=== PATIENT | female | born 1990 | race Caucasian/White ===

== ENCOUNTER 2020-10-17 07:22 | Inpatient (IN) | payer OTHER ==
[~2020-10-17] VITALS: Ht 167.6 cm; Wt 107.7 kg
[~2020-10-17 07:22] MED LIST: VITAFOL-OB+DHA1 EACH
--- NOTE | 2020-10-17 12:41 | NUR ---
30 YEAR OLD FEMALE PATIENT ADMITT[facility] WIL[facility] WITH DX OF HYPO NA, RIGHT RENAL NEPHROSIS. PATIENT STATES SHE STOPPED DRINKING ALCOHOL LAST MONDAY. SHE HAS HAS ABD PAIN N/V/D SINCE 10/15/20. UPON ADMIT PATIENT IS COOPERATIVE, ALERT, ORIENTED. HAS 2 PATENT IV SITES. ADMISSION PROCESS STARTED.
--- NOTE | 2020-10-17 14:00 | NUR ---
ADMISSION PROCESS COMPLETED. DENIES PAIN. TOOK FEW SIPS OF WATER, DENIES NAUSEA.
--- NOTE | 2020-10-17 14:30 | NUR ---
when sleeping/resting, will talk softly out loud. PATIENT IS NOT AWARE SHE DOING THIS. IV KCL, MG, ABX INFUSING.
--- NOTE | 2020-10-17 14:54 | NUR ---
DR. WILKES AWARE OF MOST CURRENT LABS. UP TO COMMODE TO VOID 800 ML ON THANIA URINE. DENIES PAIN. WITH ACTIVITY, C/O FEELING ACHY ALL OVER.
--- NOTE | 2020-10-17 15:32 | NUR ---
MED REC COMPLETE
--- NOTE | 2020-10-17 16:30 | NUR ---
D5W INFUSED. UP TO COMMODE WITH ASSIST TO VOID 700 ML OF YELLOW URINE. DENIES PAINFUL URINATION.
--- NOTE | 2020-10-17 17:12 | NUR ---
STATES SHE FEELS HOT AGAIN. DAMP TO TOUCH. TEMP ORAL 98.6, TEMP AX-99.4
--- NOTE | 2020-10-17 19:30 | NUR ---
RECEIVED REPORT FROM TURNER HAMPTON. pt RESTING IN BED WITH FATHER AT BEDSIDE. IVS SALINE LOCKED AT THIS TIME. NO REQUESTS AT THIS TIME. WHITEBOARD UPDATED. CALL LIGHT WITHIN REACH.
--- NOTE | 2020-10-17 19:53 | NUR ---
NOTIFIED MD OF CRITICAL VALUE. MD TO PUT IN ORDERS FOR LABS IN 2 HOURS AND PARAMETERS.
--- NOTE | 2020-10-17 20:02 | NUR ---
FLUID STOPPED PER MD ORDER.
--- NOTE | 2020-10-17 20:02 | NUR ---
ASSESSMENT DONE. pt ABLE TO AMBULATE WITH ASSISTANCE FROM DAD. REPORTS THAT GENERAL ACHES AND PAINS ARE BETTER AFTER THE TYLENOL. DISCUSSED PLAN OF CARE. pt ASKED APPROPRIATE QUESTIONS. LUNGS CLEAR, DIM IN THE BASES. RESPIRATION RATE IN THE HIGH 20'S TO 30'S. DENIES SOB. HR TACHY 110-120. pt RESTING IN BED. CALL LIGHT WITHIN REACH. FATHER AT BEDSIDE.
--- NOTE | 2020-10-17 20:43 | NUR ---
pt UP TO TOILET AND BACK INDEPENDENT. pt REPORTED PAIN WHEN BENDING OVER BUT NO INCREASE FROM WHEN SHE CAME IN. RESTING IN BED. CALL LIGHT WITHIN REACH.
--- NOTE | 2020-10-17 22:09 | NUR ---
IN TO DRAW LABS. pt RESTING IN BED. RESPIRATIONS IN THE 30'S, pt WOKE TO VOICE. LABS DRAWN. IV ANTIBIOTIC INFUSING PER ORDERS. NO REQUESTS AT THIS TIME. CALL LIGHT WITHIN REACH.
--- NOTE | 2020-10-17 22:40 | NUR ---
SODIUM BACK. NO CHANGES PER ORDERS. pt RESTING IN BED. CALL LIGHT WITHIN REACH.
--- NOTE | 2020-10-17 23:21 | NUR ---
CALL LIGHT ON. pt UP TO VOID AND BACK TO BED. NO CHANGES IN ASSESSMENT. CALL LIGHT WITHIN REACH. FATHER AT BEDSIDE.
--- NOTE | 2020-10-18 01:27 | NUR ---
O2 SAT 84% TO 90% ON ROOM AIR, MAINLY SUSTAINING BELOW 90%. IN TO ASSESS. pt RESPIRATION RATE CONTINUES TO BE IN THE 30-40'S. PLACED ON 2L O2 VIA NC. SATS NOW MID 90'S. RESPIRATIONS 30. HR 110'S. pt RESTING IN BED, WOKE TO VOICE. NO REQUESTS AT THIS TIME. CALL LIGHT WITHIN REACH.
--- NOTE | 2020-10-18 02:14 | NUR ---
IN TO DRAW LABS. pt WOKE TO VOICE. DENIES SOB, REPORTS "I HAVE ALLERGIES SO AT NIGHT I TEND TO BREATH FASTER AND THROUGH MY MOUTH." UP TO VOID AND BACK TO BED, SBA. CALL LIGHT WITHIN REACH. SAT 95% ON 2L.
--- NOTE | 2020-10-18 02:35 | NUR ---
UPDATED DR WILKES WITH LAB VALUE. ORDERS TO RUN A BOLUS OF 1L D5 WATER OVER 1 HOUR, TO BE FOLLOWED BY D5 WATER AT 125MLS/HR. LABS TO BE DRAWN AT 0500. ORDERS ENTERED.
--- NOTE | 2020-10-18 02:40 | NUR ---
BOLUS INFUSING PER ORDERS. DISCUSSED TREATMENT PLAN WITH pt. ALL QUESTIONS ANSWERED. CALL LIGHT WITHIN REACH.
--- NOTE | 2020-10-18 03:49 | NUR ---
BOLUS INFUSION COMPLETED. IV MAINTANENCE FLUIDS INFUSING. pt RESTING IN BED. RESPIRATIONS 30, REGULAR. EYES CLOSED. CALL LIGHT WITHIN REACH.
--- NOTE | 2020-10-18 05:25 | NUR ---
IN TO DRAW LABS AND DO ASSESSMENT. pt RESTING IN BED. UP TO VOID SBA AND BACK TO BED. REPORTED CONTINUED PAIN IN LEFT FOOT WHILE AMBULATING AND RIGHT SHOULDER WHILE ROLLING. pt REPORTED FEELING "BLOATED" NO OTHER CHANGES IN ASSESSMENT. LABS DRAWN. pt RESTING IN BED, CALL LIGHT WITHIN REACH.
--- NOTE | 2020-10-18 05:48 | NUR ---
O2 SAT DROPS TO 79 UNSUSTAINED, RELATED TO SHALLOW RESPIRATIONS. 2L O2 APPLIED. CALL LIGHT WITHIN REACH.
--- NOTE | 2020-10-18 06:25 | NUR ---
IV FLUIDS INFUSING PER ORDERS. pt SATS 100%, REMOVED O2, SATS HIGH 90'S ON ROOM AIR. pt IS AWAKE AND TALKING ON THE PHONE. CALL LIGHT WITHIN REACH.
--- NOTE | 2020-10-18 08:19 | NUR ---
PATIENT RESTING IN BED UPON INITIAL ASSESSMENT AND APPEARS IN NO ACUTE DISTRSS. HR REMAINS IN 110-120s, UP TO 130s WITH AMBULATION. RR 26-31 AT THIS TME. PT DOES SAY SHE HAS SOME SHORTNESS OF BREATH WITH ACTIVITY. UP TO BATHROOM TO VOID 600 ML. DESMOPRESSIN STARTED ONCE NEW IV WAS ESTABLISHED IN LEFT FOREARM - OTHER IV WAS INADVERTENTLY PULLED. BP THIS AM 133/71. PT'S BREAKFAST ORDERED WELL CAREGIVER TRAY. PT'S FATHER REMAINS IN ROOM. PT IS AFEBRILE AT THIS TIME. BLOOD TO BE DRAWN AN HOUR AFTER DESMOPRESSIN FINISHED. IV VANCO TO BE STARTED AFTER PATIENT HAD POSITIVE BLOOD CULTURES THIS AM. CONTINUE TO MONITOR.
--- NOTE | 2020-10-18 09:27 | NUR ---
DR. WILKES IN ROOM TO SEE PATIENT. SODIUM DRAWN FROM IV LINE AT THIS TIME. IV VANCO AND CEFEPIME INFUSING.
--- NOTE | 2020-10-18 14:06 | NUR ---
PATIENT CALLED TO USE THE BATHROOM. PATIENT AMBULATED WITHOUT CONCERN. PATIENT BACK IN BED. CALL LIGHT IN REACH. NO OTHER REQUEST AT THIS TIME
--- NOTE | 2020-10-18 15:43 | NUR ---
PATIENT HAS BEEN RESTING IN BED W/O COMPLAINTS. PT AWOKEN TO START D5 SOLUTION OF 600 ML AT THIS TIME DUE TO SODIUM COMING UP TO 127. PT UP TO BATHROOM TO VOID 650 ML. PT NOW BACK TO BED. PT HAS BEEN TACHYCARDIC THE ENTIRE DAY, AND RR UP TO 28-33.
--- NOTE | 2020-10-18 18:32 | NUR ---
BLOOD DRAWN FROM LEFT FOREARM IV SITE FOR 1830 LAB DRAW. PT STILL RECEIVING IV VANCO, MAXIPINE, AND ROCEPHIN FOR ABX. PT HAS REMAINED TACHYCARDIC ALL DAY, CURRENTLY 109. PT ALSO HAS REMAINED TACHYPNEIC, AFEBRILE ALL DAY. PT STATES SHE IS STARTING TO FEEL BORED. DENIES FURTHER NEEDS.
--- NOTE | 2020-10-18 19:05 | NUR ---
PATIENT UP TO BATHROOM AGAIN TO VOID AND BREA WELL. PT'S LEFT FOOT STILL HURTING HER, BUT OVERALL SHE THINKS ITS GETTING BETTER. SODIUM AT 1830 WAS 126 - DR. WILKES CALLED AND ORDER REC'D TO GIVE ANOTHER D5W LITER AND THEN RE-DRAW SODIUM LEVEL 45 MINUTES AFTER INFUSION COMPLETE. CONTINUE TO MONITOR.
--- NOTE | 2020-10-18 19:32 | NUR ---
RECEIVED REPORT FROM TURNER MATTSON. pt SITTING IN BED TALKING ON THE PHONE. D5 WATER BOLUS INFUSING. WHITEBOARD UPDATED. CALL LIGHT WITHIN REACH.
--- NOTE | 2020-10-18 19:43 | NUR ---
CALL LIGHT ON. PUMP ALARMING. ERROR RESOLVED. DISCUSSED PLAN OF CARE WITH pt. pt REPORTS A GOOD DAY WITH AN INTERMITTENT HEADACHE THAT FEELS "LIKE THAT HEADACHE YOU GET AFTER A CONCUSSION" DR WILKES UPDATED. pt RESTING IN BED WITH FATHER AT BEDSIDE. CALL LIGHT WITHIN REACH.
--- NOTE | 2020-10-18 20:15 | NUR ---
ASSESSMENT DONE. LUNGS CLEAR, BOWEL TONES ACTIVE. PAIN TOLERABLE AT THIS TIME. DISCUSSED PAIN MANAGEMENT OPTIONS. pt WILL CALL IF SHE NEEDS SOMETHING FOR PAIN. CALL LIGHT WITHIN REACH.
--- NOTE | 2020-10-18 21:06 | NUR ---
SPOKE WITH DR WILKES ABOUT LAB RESULTS AND NEW ORDERS. WILL HAVE PHARMACY CHANGE VANCO FROM 500MLS OF NORMAL SALINE TO 500MLS OF D5 WATER. PHARMACY UPDATED AND WILL CHANGE. BOLUS STARTED PER ORDERS.
--- NOTE | 2020-10-18 21:46 | NUR ---
CALL LIGHT ON. pt UP TO VOID AND BACK TO BED. BOLUS INFUSING PER ORDERS. CALL LIGHT WITHIN REACH. FATHER AT BEDSIDE.
--- NOTE | 2020-10-18 22:59 | NUR ---
CALL LIGHT ON. pt UP TO VOID AND HAVE BM, INDEPENDENT. pt REPORTED BM WAS DARK BROWN AND FORMED. pt RESTING IN BED. CALL LIGHT WITHIN REACH.
--- NOTE | 2020-10-19 00:15 | NUR ---
IN TO DRAW LABS AND GIVE MEDICATIONS. pt RESTING IN BED. REPORTED HER HEADACHE HAS GONE AWAY, NO OTHER CHANGES IN ASSESSMENT. IV MEDICATIONS INFUSING PER ORDERS. CALL LIGHT WITHIN REACH.
--- NOTE | 2020-10-19 00:51 | NUR ---
IV INFUSION COMPLETED, SL RIGHT FOREARM IV. pt SNORING RESPIRATIONS IN THE 30'S. O2 SAT 96% ON ROOM AIR. CALL LIGHT WITHIN REACH.
--- NOTE | 2020-10-19 03:12 | NUR ---
IN TO DRAW LABS. pt RESTING IN BED AWAKE. REPORTED FEELING COLD. PROVIDED WARM BLANKETS. LABS DRAWN. NO REQUESTS AT THIS TIME. CALL LIGHT WITHIN REACH.
--- NOTE | 2020-10-19 06:35 | NUR ---
IN TO DO ASSESSMENT AND LAB DRAW. pt WOKE TO VOICE. REPORTED HAVING SLEPT WELL. LAB DRAW DONE. pt UP TO VOID. ASSESSMENT DONE. NO CHANGES. MEDICATION INFUSING PER ORDERS. CALL LIGHT WITHIN REACH. pt RESTING IN BED.
--- NOTE | 2020-10-19 07:00 | NUR ---
INFUSION COMPLETED. SL. TALKED ABOUT PLAN FOR THE DAY. CALL LIGHT WITHIN REACH. pt RESTING IN BED.
--- NOTE | 2020-10-19 07:13 | NUR ---
LAB RESULTS IN. PER ORDERS STARTED A BOLUS OF D5 WATER 1 LITER OVER AN HOUR. pt UPDATED.
--- NOTE | 2020-10-19 07:30 | NUR ---
PATIENT REPORT RECIEVED FROM TURNER ELDRIDGE. PATIENT IS RESTING IN BED. RESPIRATIONS ARE EQUAL AND UNLABORED. CALL LIGHT WITHIN REACH NO FUTHER NEEDS.
--- NOTE | 2020-10-19 08:30 | NUR ---
PATIENT ASSESSMENT COMPLETE. MEDICATIONS GIVEN. ALERT AND ORIENTED X4. PATIENT IS COMPLAINING OF RIGHT SHOULDER PAIN ACHE. PATIENT OFFERED PRN TYLENOL AND DENIED IT. REPOSITIONED ARM ON PILLOW. PATIENT LUNG SOUNDS ARE CLEAR AND OXYGEN SATURATION IS 98%. DENIES SHORTNESS OF BREATH. HEART SOUNDS ARE WNL AND PATIENT IS SINUS TACH AT 110 BPM. PATIENT URINE OUTPUT IS YELLOW AND CLEAR. BM EARLY THIS MORNING. PATIENT DENIES DIARREHA OR NASEUA. BOWEL SOUNDS ARE ACTIVE. D5LR BOLUS RUNNING AT 999 MLS/HR. 500 MLS TO BE INFUSED. PATIENT UPDATED ON PLAN OF CARE. NO QUESTIONS AT THIS TIME. CALL LIGHT WITHIN REACH NO FUTHER NEEDS.
--- NOTE | 2020-10-19 11:23 | NUR ---
PATIENT AM CARE DONE. PATIENT AMBULATED TO THE BATHROOM. PATIENT WAS SLIGHTLY CONFUSED WHEN IN THE BATHROOM. UNABLE TO PULL UNDERWEAR DOWN AND NEEDED INSTRUCTED. ALSO STATED "WHEN CAN I GO TO THE BATHROOM" AFTER BEING LEFT IN PRIVACY TO GO. WILL CONTINUE TO MONITOR CONFUSION. PATIENT BACK TO BED. BREATHING IS EQUAL AND UNLABORED. CALL LIGHT WITHIN REACH NO FUTHER NEEDS.
--- NOTE | 2020-10-19 11:30 | NUR ---
PATIENT SBA UP TO BATHROOM. PATIENT APPEARED CONFUSED TO WHAT SHE WAS DOING, SAT ON TOILET WITHOUT PULLING UNDERWEAR DOWN. PATIENT ALSO ASKED 'SHOULD I BE GOING PEE NOW?" WHILE SITTING ON THE TOILET. PATIENT IN RECLINER FOR BEDBATH. NEW GOWN, UNDERWEAR AND LINEN PROVIDED. BAKC TO BED HR HAD INCREASED DURING THIS ACTIVITY. CALL LIGHT AND PERSONAL ITEMS IN EASY REACH
--- NOTE | 2020-10-19 12:00 | NUR ---
ASSESSMENT COMPLETE. MEDICATIONS GIVEN ORDERED. PATIENT IS ALERT AND ORIENTED X4. PATIENT IS STILL SLOW TO RESPOND BUT DENIES THAT SHE FEELS CONFUSED. PATIENT LUNG SOUNDS ARE CLEAR AND SHE IS ON ROOM AIR. PATIENT OXYGEN SATURATION IS 98%. PATIENT RR IS 28. HEART SOUNDS ARE WNL AND PATIENT IS IN A SINUS TACH AT 119 BPM. PATIENT DENIES ANY ABDOMINAL PAIN OR NASUEA. URINE OUTPUT IS YELLOW AND CLEAR. PATIENT UPDATED ON PLAN OF CARE. NO QUESTIONS AT THIS TIME. CALL LIGHT WITHIN REACH NO FUTHER NEEDS.
--- NOTE | 2020-10-19 12:30 | NUR ---
PATIENT AMBULATED TO RESTOOM WITH ASSIST BY THIS RN. PATIENT WAS PAINFUL IN THE RIGHT SHOULDER AND LEFT LEG. COMPLAINING OF 9/10 PAIN. HEART RATE WAS HIGH 129 BPM. RR WERE 30. PATIENT BACK TO BED WITH ASSISTANCE. HAD SHORTNESS OF BREATH. HER OXYGEN SATURATION WAS 98% ON ROOM AIR. CALL LIGHT WITHIN REACH NO FUTHER NEEDS.
--- NOTE | 2020-10-19 12:58 | NUR ---
3% ns at 30 ml/hr hung as per orders. CONTINUES TO C/O LEFT LEG PAIN AND RIGHT SHOULDE ACHE.
--- NOTE | 2020-10-19 13:30 | NUR ---
SPOKE WITH PATIENT IN ROOM. PATIENT SITTING UP AT SIDE OF BED FOR LUNCH. PATIENT LIVES WITH PARENTS IN [place]. HER 5 YEAR OLD SON LIVES WITH HER. SHE USES NO DME. SHE DRIVES, FAMILY WILL PROVIDE RIDE HOME. SHE STATES SHE IS HAVING TROUBLE WITH ALCOHOL. SHE IS INTERESTED IN HELP WITH TREATMENT. STATES SHE FOUND A PLACE IN [place] THAT WOULD LET HER STAY AND HER SON STAY WITH HER. SHE IS ON A WAITING LIST FOR THIS. SHE WOULD WELCOME ANY HELP WITH THIS. DISCUSSED [facility], SHE AGREES TO A VISIT OR CALL WITH THEM. DISCUSSED WITH HER ALSO NEEDING PCP. SHE IS NOT SURE WHO SHE WANTS TO USE. GAVE HER A LOCAL CLINIC LIST. SHE WANTS TO FIND ONE IN THE [place], NOT [place]. SHE STATES SHE WILL LOOK AT IT AND SEE WHO SHE WOULD WANT TO TRY. CIRCLED [facility] WHICH IS AN OFFICE FOR HER [facility] COVERAGE ONLY. CALLED [facility] AND SPOKE WITH TAMERA [phone]. TAMERA STATES SHE MIGHT BE ABLE TO COME UP THIS AFTERNOON, IF NOT AROUND 8AM TOMORROW FOR SURE. UPDATED STAFF AND PATIENT REGARDING THIS.
--- NOTE | 2020-10-19 16:01 | NUR ---
PATIENT ASSESSMENT COMPLETE. MEDICATIONS GIVEN ORDERED. DR. ELENA NOTIFIED ABOUT NA LEVEL BEING 125. LAB WILL DRAW AGAIN 10/20/20 AT 0600. PATIENT IS ALERT AND ORIENTED X4. DENIES DIZZNESS. LUNG SOUNDS ARE CLEAR AND PATIENT IS ON ROOM AIR. OXYGEN SATURATION IS AT 98%. HEART SOUNDS ARE WNL AND PATIENT IS IN SINUS TACH AT 112 BPM. PATIENT COMPLAINS OF BEING NAUSEATED EARLIER BUT DENIES IT NOW. URINE OUTPUT IS CLEAR AND YELLOW. 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 DENIES DIARRHEA. PAIN IS A 8/10 WHEN AMBULATING. PATIENT SAYS THE PAIN IS IN RIGHT SHOULDER AND DOWN HER LEFT LEG. THE PAIN IS AN ACHE. PRN TYLENOL WILL BE GIVEN. PATIENT UPDATED ON PLAN OF CARE. CALL LIGHT WITHIN REACH NO FUTHER NEEDS.
--- NOTE | 2020-10-19 19:30 | NUR ---
RECEIVED REPORT FROM TURNER VILCHIS. pt RESTING IN BED TALKING ON PHONE WITH FATHER AT BEDSIDE. CALL LIGHT WITHIN REACH.
--- NOTE | 2020-10-19 20:37 | NUR ---
DR. ELENA NOTIFIED OF POSITIVE BLOOD CULTURE RESULTS. ONE AEROBIC BOTTLE GREW GRAM POSITIVE COCCI IN CLUSTERS. PT IS ALREADY ON VANCO, THEREFORE NO NEW ORDERS NEEDED AT THIS TIME.
--- NOTE | 2020-10-19 20:41 | NUR ---
IN TO DO ASSESSMENT. pt RESTING IN BED. DENIED HEADACHE AT THIS TIME. PAIN IN RIGHT SHOULDER WITH MOVEMENT AND LEFT FOOT WHEN STANDING REMAIN UNCHANGED. DISCUSSED PLAN OF CARE AND MEDICATIONS FOR THE SHIFT. pt ALERT AND ORIENTED, ASKED APPROPRIATE QUESTIONS. FATHER AT BEDSIDE. ASSESSMENT DONE. CALL LIGHT WITHIN REACH.
--- NOTE | 2020-10-19 22:42 | NUR ---
CALL LIGHT ON. pt UP TO VOID AND BACK TO BED, SBA. CALL LIGHT WITHIN REACH.
--- NOTE | 2020-10-20 00:53 | NUR ---
IN TO GIVE MEDICATION. pt WOKE TO VOICE. DENIED NEW OR INCREASED PAIN. NO HEADACHE. NO CHANGES IN ASSESSMENT. RESPIRATIONS MID 20'S TO 30'S. IV MEDICATION INFUSING. CALL LIGHT WITHIN REACH.
--- NOTE | 2020-10-20 01:30 | NUR ---
IV INFUSION COMPLETE. SL. pt RESTING IN BED WITH EYES CLOSED, RESPIRATIONS REGULAR AND UNLABORED. CALL LIGHT WITHIN REACH.
--- NOTE | 2020-10-20 04:45 | NUR ---
CALL LIGHT ON. pt REQUESTED TO GET UP TO VOID. SBA TO VOID AND BACK TO BED. ASSESSMENT DONE. NO CHANGES. pt STATED THAT HER PAIN IS SLIGHTLY IMPROVED. NO HEADACHE DURING SHIFT. RIGHT IV PAINFUL. NEW IV STARTED AND LABS DRAWN. NO REQUESTS AT THIS TIME. pt RESTING IN BED. CALL LIGHT WITHIN REACH.
--- NOTE | 2020-10-20 08:02 | NUR ---
PATIENT ASSESSMENT COMPLETE. MEDICATIONS GIVEN ORDERED. PATIENT IS SITTING UP IN CHAIR FOR BREAKFAST. PATIENT STATES "I AM FEELING BETTER THAN YESTERDAY". PATIENT IS ALERT AND ORIENTED X4. LUNG SOUNDS ARE CLEAR AND OXYGEN SATURATION IS 98% ON ROOM AIR. PATIENT HEART SOUNDS ARE WNL AND SHE IS IN SINUS RHTYM AT 100 BPM. RR ARE 24. PATIENT DENIES ANY NAUSEA OR PAIN. PATIENT URINE IS YELLOW AND CLEAR. DENIES ANY DIARRHEA. BOWEL SOUNDS ARE ACTIVE. PATIENT IS SALINE LOCKED. UPDATED ON PLAN OF CARE. NO QUESTIONS AT THIS TIME. CALL LIGHT WITHIN REACH NO FUTHER NEEDS.
--- NOTE | 2020-10-20 09:44 | NUR ---
PATIENT IN WITH ECHO. MEDICATION GIVEN ORDERED. BREATHING IS EQUAL AND UNLABORED. CALL LIGHT WITHIN REACH NO FUTHER NEEDS.
--- NOTE | 2020-10-20 12:30 | NUR ---
PATIENT ASSESSMENT COMPLETE. MEDICATIONS GIVEN. PATIENT IS ALERT AND ORIENTED X4. LUNG SOUNDS ARE CLEAR AND PATIENT IS ON ROOM. HEART SOUNDS ARE WNL AND IN SINUS RHYTHM. PATIENT DENIES OF ABDOMINAL PAIN AND HAS NOT HAD A BM TODAY. URINE IS YELLOW AND CLEAR. DR. ELENA HAS TRANSFER ORDERS FOR PATIENT TO GO TO MED SURG. PATIENT UPDATED ON PLAN OF CARE CALL LIGHT WITHIN REACH NO FUTHER NEEDS.
--- NOTE | 2020-10-20 15:00 | NUR ---
Update from RN. Pt saw [facility] to [facility] support today. Awaiting echo.
--- NOTE | 2020-10-20 16:15 | NUR ---
PATIENT ASSESSMENT COMPLETE. PATIENT IS ALERT AND ORIENTED X4. LUNG SOUNDS ARE CLEAR THROUGHOUT. HEART SOUNDS ARE WNL AND PATIENT IS IN A SINUS RHYTM. DENIES ANY PAIN OR NASEUA AT THIS TIME. URINE IS CLEAR AND YELLOW. UPDATED ON PLAN OF CARE. CALL LIGHT WITHIN REACH NO FUTHER NEEDS.
--- NOTE | 2020-10-20 16:33 | NUR ---
Patient arrived to medical floor from ccu. Patient a&ox4. Vital signs are stable, afebrile. Patient reports right shoulder strain-started at home as she reports after she woke of from sleeping. No chest pain or sob at this time. Patient denies nausea. Oriented patient to room and call light. No needs at this time. Personal supplies and call light within reach.
--- NOTE | 2020-10-20 18:02 | NUR ---
PATIENT SITTING UP IN BED EATING DINNER. VITALS CHARTED. CALL LIGHT IN REACH. NO FURTHER NEEDS AT THIS TIME.
--- NOTE | 2020-10-20 20:00 | NUR ---
REPORT RECEIVED FROM TURNER CANTU. ASSUMED CARE OF pt. pt RESTING IN BED. FAMILY IN ROOM.
--- NOTE | 2020-10-20 20:35 | NUR ---
CALL LIGHT ANSWERED ICE WATER AND PRN PAIN MEDICATION ADMINISTERED FOR LOCKWOOD. VERBAL ORDER OKAY TO ADMINISTER PRN TYLENOL EARLY, ORDER REPEATED BACK. pt RESTING IN BED TALKING ON PHONE WITH SON. VSS. ASSESSMENT COMPLETE. URINE HAT PLACED IN TOILET AT THIS TIME. CALL LIGHT IN REACH. NO ADDITIONAL REQUESTS.
--- NOTE | 2020-10-20 23:06 | NUR ---
CHECKED ON pt. RESTING IN BED AWAKE. DENIES ANY NEEDS AT THIS TIME, STATES "I'M JUST NOT TIRED YET". CALL LIGHT IN REACH.
--- NOTE | 2020-10-21 02:05 | NUR ---
PT CALLED, REQUESTED A WARM BLANKET. HAS BEEN SLEEPING BUT GOT UP TO USE THE BATHROOM. NO OTHER NEEDS AT THIS TIME.
--- NOTE | 2020-10-21 02:13 | NUR ---
CHECKED ON pt. RESTING IN BED WITH EYES CLOSED. BREATHING EQUAL AND UNLABORED.
--- NOTE | 2020-10-21 04:30 | NUR ---
CHECKED ON pt. RESTING IN BED. NO DISTRESS NOTED.
--- NOTE | 2020-10-21 06:50 | NUR ---
pt AWAKE RESTING IN BED. ASSESSMENT COMPLETE. pt C/O 07/16 HEADACHE. PRN TYLENOL ADMINISTERED FOR PAIN. ALLOTTED ICE WATER PROVIDED. URINE EMPTIED. pt DENIES ADDITIONAL NEEDS. VSS.
--- NOTE | 2020-10-21 07:46 | NUR ---
Spoke with Jenni, she was able to see [facility] to [facility] support and plans on continuing to see them for her alcohol abuse. She cont. to consider an IP program, but states the wait is long. She does not have a pcp and I asked if she would like me to find a Pcp in [place] as she lives 45 miles away. She would prefer a [address] She does not have a preference of the Physician clinic, PFM, or [facility] provider. Informed I will see who has space first. Checked with [facility] and [facility] and they are both unable to scheduled in 10-14 days. Faxed chart to [facility] as they will fit her in.
--- NOTE | 2020-10-21 07:54 | NUR ---
this rn received report from iris correa. pt has a headache at this time and this rn will check on pt soon
--- NOTE | 2020-10-21 08:09 | NUR ---
THIS RN IN PTS ROOM TO [facility] EPT HER MORNING MEDS AND DO MORNING ASSESSMENT. PT REPORTS THAT HER LOCKWOOD IS IMPROVING FROM THE TYLENOL. PT ASKING APPROPRIATE QUESTIONS ABOUT HER CARE AND HER LAB VALUES. PT STATES THAT HAS NO OTHER CONCERNS THIS AM
--- NOTE | 2020-10-21 09:45 | NUR ---
PT AWAKE IN ROOM. THIS HOME INSURANCE AGENT OPENED PTS BLINDS. CALL LIGHT WITHIN REACH. NO FURTHER NEEDS AT THIS TIME.
--- NOTE | 2020-10-21 10:32 | NUR ---
PT REFUSED SHOWER THIS MORNING. CALL LIGHT WITHIN REACH. NO FURTHER NEEDS AT THIS TIME.
--- NOTE | 2020-10-21 12:49 | NUR ---
pt appears to be resting at this time with even respirations noted
--- NOTE | 2020-10-21 13:30 | NUR ---
Notified by Laurie at [facility] pt has been assigned to Aubrie Bernstein to see at 1340. Pt notified and appt added to DC info.
--- NOTE | 2020-10-21 13:43 | NUR ---
Visited with PT and let her know that we offer to ask the [facility] to come and visit PT's who would want a visit. She declined but visited with me and ask for prayer for her 6 year old son, Jaylen. I prayed with her and she thanked me for the visit and prayer. She is hopeful to go home soon.
[2020-10-21] MEDS ORDERED: VITAMIN B-1100 MG PO (14:23)
[2020-10-21] MEDS ORDERED: CEFTRIAXONE2 G1 IV (14:23)
--- NOTE | 2020-10-21 16:14 | NUR ---
Notifed by Dr. Perrin pt will need to fu with OP for IV therapy for 9 days. Chart was sent to OP by propellant charge zone assembler.
== END 2020-10-21 16:20 | disposition home or self-care (01) | DRG 872 ==
LOC: ED 07:22 → CCU 12:31 → MS 10-20 16:35
PROVIDERS: ADMIT Student in an Organized Health Care Education/Training Program; ATTEND Student in an Organized Health Care Education/Training Program
DX: A40.1 Sepsis due to streptococcus, group B (principal); N10 Acute pyelonephritis; E87.1 Hypo-osmolality and hyponatremia; E83.39 Other disorders of phosphorus metabolism; Z20.822 Contact with and (suspected) exposure to COVID-19; F10.10 Alcohol abuse, uncomplicated; E86.1 Hypovolemia; E87.6 Hypokalemia; K70.30 Alcoholic cirrhosis of liver without ascites; E83.42 Hypomagnesemia; R74.01 Elevation of levels of liver transaminase levels
CPT/HCPCS: 36569; 71045; 74177; 80048; 80053; 80202; 81001; 83605; 83690; 83735; 84100; 84295; 84703; 85007; 85025; 85610; 87040; 87088; 93306; J0692; J0696; J1650; J2405; J2597; J3370; J3475; J3480; J7030; J7040; J7060; J7070; J7131; Q9967; U0003

== ENCOUNTER 2022-10-27 09:26 | Emergency (ER) | payer OTHER ==
[~2022-10-27] VITALS: Ht 167.6 cm; Wt 107.5 kg
[~2022-10-27 09:26] MED LIST changes: +CEFTRIAXONE2 G1 IV; +VITAMIN B-1100 MG PO
[2022-10-27 09:49] LABS: BASOPHILS 1.4 % (0-2); EOSINOPHILS 0.5 % (0-6); HEMATOCRIT 35.5 % (35.0-50.0); HEMOGLOBIN 12.1 g/dL (12.0-18.0); LYMPHOCYTES 10.8 % (24-44); MCH 34.9 (27-36); MCHC 34.2 g/dl (30-36); MCV 102.2 fl (81-99); MONOCYTES 4.1 % (0-12); NEUTROPHILS 83.2 % (39-80); PLATELET COUNT 166 K/uL (140-440); RBC 3.48 M/ul (4.3-5.7); RDW 13.6 (10.5-15.0)
[2022-10-27 10:03] LABS: ALBUMIN 3.8 g/dL (3.4-5.0); ALBUMIN/GLOBULIN RATIO 0.63 (1.1-2.4); BILIRUBIN, TOTAL 1.4 ng/dL (0.2-1.0); BUN/CREATININE RATIO 10.52 (6.0-28.6); CALCIUM 8.8 mg/dL (8.5-10.1); CREATININE, SERUM 0.57 mg/dL (0.55-1.02); PROTEIN, TOTAL 9.8 g/dL (6.4-8.2)
[2022-10-27] MEDS ORDERED: ONDANSETRON ODT8 MG PO (12:14)
[2022-10-27] MEDS ORDERED: CHLORDIAZEPOXID25 MG PO (12:14)
[2022-10-27 12:37] VITALS: BP 109/91
== END 2022-10-27 12:37 | disposition home or self-care (01) ==
LOC: ED 09:26
PROVIDERS: Emergency Medicine
DX: F10.239 Alcohol dependence with withdrawal, unspecified (principal); Z79.899 Other long term (current) drug therapy
CPT/HCPCS: 36415; 70450; 80053; 83690; 84703; 85025; 96374; 96375; 96376; 99285-25; A9270; J1885; J2060; J7030